=== PATIENT | male | born 1990 | race Two or more races ===

== ENCOUNTER 2021-01-27 19:28 | Emergency (ER) | payer OTHER, SELFPAY ==
[~2021-01-27] VITALS: Ht 180.3 cm; Wt 88.5 kg
[2021-01-27 19:46] VITALS: BP 136/90
[2021-01-27 20:21] VITALS: BP 136/90
== END 2021-01-27 20:21 | disposition home or self-care (01) ==
LOC: MED 19:28
DX: M79.10 Myalgia, unspecified site (principal); R19.7 Diarrhea, unspecified; R51.9 Headache, unspecified; Z20.822 Contact with and (suspected) exposure to COVID-19
CPT/HCPCS: 99283; U0003

== ENCOUNTER 2022-05-10 07:31 | Emergency (ER) | payer OTHER ==
[~2022-05-10] VITALS: Ht 180.3 cm; Wt 83.0 kg
[2022-05-10 07:40] VITALS: BP 144/94
--- NOTE | 2022-05-10 07:54 | NUR ---
bibs for diffuse abd pain 09/30 with nvd x 1 day. no active vomit @ this time. denies blood. burning. afebrile in triage. denies dizziness, chest pain, chills, sob. abd soft, tender, nondistended. bowel sounds presnet. denies urinary sx. aao x4. resp even and nonlabored. vss.
[2022-05-10] MEDS ORDERED: KETOROLAC 15 MG/ML VIAL IVP ONE (08:05)
[2022-05-10] MEDS ORDERED: FAMOTIDINE 20 MG/2 ML VIAL IVP ONE (08:05)
[2022-05-10] MEDS ORDERED: NACL 0.9% 2,000 ML IV ONE (08:05)
[2022-05-10] MEDS ORDERED: ONDANSETRON 4 MG/2 ML VIAL IVP ONE (08:05)
--- NOTE | 2022-05-10 08:19 | NUR ---
medicated per md order.
[2022-05-10] MEDS ORDERED: DIPHENOXYLATE /ATROPINE 2.5 MG TAB PO ONE (08:20)
--- NOTE | 2022-05-10 08:41 | NUR ---
blood sent to lab
--- NOTE | 2022-05-10 08:41 | NUR ---
medicated for diarrhea
[2022-05-10 08:45] LABS: BASOPHILS % (AUTO) 0.4 % (0.0-2.0); EOSINOPHILS # (AUTO) 0.1 K/uL (0-0.4); EOSINOPHILS % (AUTO) 1.5 % (0.0-4.0); HEMATOCRIT 42.6 % (36-52); HEMOGLOBIN 14.2 g/dL (12.0-18.0); LYMPHOCYTES # (AUTO) 1.5 K/uL (2.0-11.5); LYMPHOCYTES % (AUTO) 31.4 % (20.5-51.1); MEAN CORPUSCULAR HEMOGLOBIN 28 pg (27-31); MEAN CORPUSCULAR HGB CONC 33 g/dL (33-37); MEAN CORPUSCULAR VOLUME 84.7 fL (80-94); MONOCYTES # (AUTO) 0.5 K/uL (0.8-1.0); MONOCYTES % (AUTO) 10.3 % (1.7-9.3); NEUTROPHILS # (AUTO) 2.7 K/uL (1.8-7.7); NEUTROPHILS % (AUTO) 56.4 % (42.2-75.2); PLATELET COUNT (AUTO) 242 K/uL (140-450); RED BLOOD CELL COUNT(AUTO) 5.03 MIL/uL (4.20-6.10); RED CELL DISTRIBUTION WIDTH 12.9 % (11.6-13.7); WHITE BLOOD COUNT (AUTO) 4.9 K/uL (4.8-10.8)
[2022-05-10 09:13] LABS: ALBUMIN 4.7 g/dL (3.4-5.0); ANION GAP 12.4 (8-16); CARBON DIOXIDE 29.1 mmol/L (21-32); POTASSIUM 3.5 mmol/L (3.5-5.1); TOTAL BILIRUBIN 0.6 mg/dL (0.0-1.0)
--- NOTE | 2022-05-10 09:47 | NUR ---
urine sent to lab
[2022-05-10 09:48] VITALS: BP 122/74
[2022-05-10 09:55] LABS: APPEARANCE,URINE CLEAR (CLEAR); BILIRUBIN,URINE NEGATIVE (NEGATIVE); BLOOD, URINE NEGATIVE (NEGATIVE); COLOR,URINE YELLOW (YELLOW); LEUKOCYTE ESTERASE ,URINE NEGATIVE (NEGATIVE); NITRITE, URINE NEGATIVE (NEGATIVE); UGLUCOSE NEGATIVE (NEGATIVE)
[2022-05-10] MEDS ORDERED: ONDA-188 PO ×2 (10:02→10:23)
[2022-05-10] MEDS ORDERED: ATRO1TAB PO ×2 (10:02→10:23)
[2022-05-10] MEDS ORDERED: FAMO-92 PO ×2 (10:02→10:23)
--- NOTE | 2022-05-10 10:18 | NUR ---
Patient discharged with v/s stable. Written and verbal after care instructions ABOUT VOMITING AND DIARRHEA given and explained. Patient alert, oriented and verbalized understanding of instructions. Ambulatory with steady gait. All questions addressed prior to discharge. ID band removed. Patient advised to follow up with PMD. Rx of LOMOTIL, PEPCID, ZOOFRAN ODT given. Patient educated on indication of medication including possible reaction and side effects. Opportunity to ask questions provided and answered.
--- NOTE | 2022-05-15 10:34 | NUR ---
CONFIRMED WITH RN NS INFUSION COMPLETED AT 0911 05/10/22
== END 2022-05-10 10:18 | disposition home or self-care (01) ==
LOC: MED 07:31
DX: R11.10 Vomiting, unspecified (principal); R19.7 Diarrhea, unspecified; E86.0 Dehydration
CPT/HCPCS: 36415; 80053; 81003; 83690; 85025; 96361; 96374; 96375; 99284; J1885; J2405; J3490; J7030

== ENCOUNTER → 2022-08-28 | Outpatient (CLI) | payer OTHER ==
[~2022-08-28] MED LIST: ATRO1TAB PO; FAMO-92 PO; ONDA-188 PO
[2022-08-28 17:23] LABS: APPEARANCE,URINE CLEAR (CLEAR); BILIRUBIN,URINE NEGATIVE (NEGATIVE); BLOOD, URINE NEGATIVE (NEGATIVE); COLOR,URINE YELLOW (YELLOW); EOSINOPHILS # (AUTO) 0.2 K/uL (0-0.4); EOSINOPHILS % (AUTO) 2.9 % (0.0-4.0); HEMATOCRIT 44.7 % (36-52); HEMOGLOBIN 15.2 g/dL (12.0-18.0); LEUKOCYTE ESTERASE ,URINE NEGATIVE (NEGATIVE); LYMPHOCYTES # (AUTO) 2.4 K/uL (2.0-11.5); LYMPHOCYTES % (AUTO) 41.7 % (20.5-51.1); MEAN CORPUSCULAR HEMOGLOBIN 29 pg (27-31); MEAN CORPUSCULAR HGB CONC 34 g/dL (33-37); MEAN CORPUSCULAR VOLUME 83.8 fL (80-94); MONOCYTES # (AUTO) 0.3 K/uL (0.8-1.0); MONOCYTES % (AUTO) 5.5 % (1.7-9.3); NEUTROPHILS # (AUTO) 2.9 K/uL (1.8-7.7); NEUTROPHILS % (AUTO) 49.9 % (42.2-75.2); NITRITE, URINE NEGATIVE (NEGATIVE); PLATELET COUNT (AUTO) 247 K/uL (140-450); RED BLOOD CELL COUNT(AUTO) 5.34 MIL/uL (4.20-6.10); RED CELL DISTRIBUTION WIDTH 13.8 % (11.6-13.7); UGLUCOSE NEGATIVE (NEGATIVE); WHITE BLOOD COUNT (AUTO) 5.8 K/uL (4.8-10.8)
[2022-08-28 18:30] LABS: ALBUMIN 4.6 g/dL (3.4-5.0); ANION GAP 13.2 (8-16); CREATININE 0.9 mg/dL (0.6-1.3); FREE T4 (FREE THYROXINE) 0.88 ng/dL (0.76-1.46); POTASSIUM 4.2 mmol/L (3.5-5.1); THYROID STIMULATING HORMONE 2.19 uIU/mL (0.34-3.74); TOTAL BILIRUBIN 0.4 mg/dL (0.0-1.0); URIC ACID 7.4 mg/dL (2.6-7.2)
[2022-08-30 09:06] LABS: FOLIC ACID 15.5 ng/mL (>3.0)
== END | disposition home or self-care (01) ==
LOC: MLB 16:39
PROVIDERS: ATTEND Internal Medicine
DX: R19.4 Change in bowel habit (principal); K76.0 Fatty (change of) liver, not elsewhere classified; E66.3 Overweight; E78.5 Hyperlipidemia, unspecified
CPT/HCPCS: 36415; 80053; 81003; 82306; 82607; 82728; 82746; 83036; 83540; 84439; 84443; 84550; 85025; 86003

== ENCOUNTER 2022-10-30 13:48 | Outpatient (CLI) | payer OTHER ==
[2022-10-30 15:01] LABS: CHOL/HDL RATIO 5.3 (1-4.5); URIC ACID 6.8 mg/dL (2.6-7.2)
[2022-10-31 09:06] LABS: HEMOGLOBIN A1C 5.5 % (4.8-5.6)
== END 2022-10-30 20:14 | disposition home or self-care (01) ==
LOC: MLB 13:48
PROVIDERS: ATTEND Internal Medicine
DX: K76.0 Fatty (change of) liver, not elsewhere classified (principal); E79.0 Hyperuricemia without signs of inflammatory arthritis and tophaceous disease; E78.5 Hyperlipidemia, unspecified; R19.4 Change in bowel habit
CPT/HCPCS: 36415; 83036; 84550; 86003

== ENCOUNTER 2024-01-12 12:16 | Outpatient (CLI) | payer OTHER ==
[2024-01-12 13:00] LABS: BASOPHILS % (AUTO) 0.6 % (0.0-2.0); EOSINOPHILS # (AUTO) 0.1 K/uL (0-0.4); EOSINOPHILS % (AUTO) 2.2 % (0.0-4.0); HEMATOCRIT 46.3 % (36-52); HEMOGLOBIN 15.4 g/dL (12.0-18.0); LYMPHOCYTES # (AUTO) 2.3 K/uL (2.0-11.5); LYMPHOCYTES % (AUTO) 37.6 % (20.5-51.1); MEAN CORPUSCULAR HEMOGLOBIN 29 pg (27-31); MEAN CORPUSCULAR HGB CONC 33 g/dL (33-37); MEAN CORPUSCULAR VOLUME 86.4 fL (80-94); MONOCYTES # (AUTO) 0.4 K/uL (0.8-1.0); MONOCYTES % (AUTO) 6.8 % (1.7-9.3); NEUTROPHILS # (AUTO) 3.3 K/uL (1.8-7.7); NEUTROPHILS % (AUTO) 52.8 % (42.2-75.2); PLATELET COUNT (AUTO) 277 K/uL (140-450); RED BLOOD CELL COUNT(AUTO) 5.36 MIL/uL (4.20-6.10); RED CELL DISTRIBUTION WIDTH 12.6 % (11.6-13.7); WHITE BLOOD COUNT (AUTO) 6.2 K/uL (4.8-10.8)
[2024-01-12 13:46] LABS: ANION GAP 10.1 (8-16); CALCIUM 9.7 mg/dL (8.5-10.1); CARBON DIOXIDE 32.9 mmol/L (21-32)
[2024-01-12 13:59] LABS: TOTAL BILIRUBIN 0.7 mg/dL (0.0-1.0)
[2024-01-12 14:00] LABS: ALBUMIN 4.4 g/dL (3.4-5.0); CHOL/HDL RATIO 6.1 (1-4.5); THYROID STIMULATING HORMONE 1.5 uIU/mL (0.34-3.74)
[2024-01-12 14:10] LABS: APPEARANCE,URINE CLEAR (CLEAR); BILIRUBIN,URINE NEGATIVE (NEGATIVE); BLOOD, URINE NEGATIVE (NEGATIVE); COLOR,URINE YELLOW (YELLOW); LEUKOCYTE ESTERASE ,URINE NEGATIVE (NEGATIVE); NITRITE, URINE NEGATIVE (NEGATIVE); PROTEIN,URINE NEGATIVE (NEGATIVE); UGLUCOSE NEGATIVE (NEGATIVE); UROBILINOGEN,URINE 0.2 EU/dL (0.2 - 1)
[2024-01-13 16:00] LABS: HEMOGLOBIN A1C 5.7 % (4.8-5.6)
== END 2024-01-12 15:37 | disposition home or self-care (01) ==
LOC: MLB 12:16
PROVIDERS: ATTEND Internal Medicine
DX: Z00.01 Encounter for general adult medical examination with abnormal findings (principal); R16.0 Hepatomegaly, not elsewhere classified; R74.01 Elevation of levels of liver transaminase levels; E78.5 Hyperlipidemia, unspecified; R79.9 Abnormal finding of blood chemistry, unspecified
CPT/HCPCS: 36415; 76705; 80053; 81003; 82306; 83036; 84443; 84550; 85025